=== PATIENT | female | born 1960 | race Native Hawaiian/Other Pacific Islander ===

== ENCOUNTER 2016-12-25 08:30 | Outpatient (CLI) | payer BC ==
[~2016-12-25 08:30] MED LIST: BC FAST PAI1 OR; IBUPROFEN PO; METAMUCIL0.52 GM PO; METRONIDAZOL500 MG PO; TRIM800T12 PO
[2016-12-25 08:55] LABS: PLATELET COUNT 288 K/uL (152-353)
[2016-12-25 09:35] LABS: POTASSIUM 4.2 mmol/L (3.6-5.2); SODIUM 139 mmol/L (136-145)
== END 2016-12-25 19:00 | disposition home or self-care (01) ==
LOC: LABW 08:30
PROVIDERS: Internal Medicine
DX: R10.31 Right lower quadrant pain (principal); D64.89 Other specified anemias; E78.4 Other hyperlipidemia
CPT/HCPCS: 36415; 80053; 80061; 81000; 84439; 84443; 85027

== ENCOUNTER 2017-01-01 07:58 | Outpatient (CLI) | payer BC | END 2017-01-01 19:11 | disposition home or self-care (01) | LOC: CT 07:58 | DX: R10.31 Right lower quadrant pain (principal) | CPT/HCPCS: Q9963 ==

== ENCOUNTER 2017-05-22 14:10 | Emergency (ER) | payer BC ==
[~2017-05-22] VITALS: Ht 167.6 cm; Wt 81.6 kg
== END 2017-05-22 15:42 | disposition home or self-care (01) ==
LOC: ED 14:10
PROC: 2W3DX1Z Immobilization of Left Lower Arm using Splint (ICD-10-PCS; principal; 2017-05-22)
DX: S52.502A Unspecified fracture of the lower end of left radius, initial encounter for closed fracture (principal); W19.XXXA Unspecified fall, initial encounter; Y92.098 Other place in other non-institutional residence as the place of occurrence of the external cause
CPT/HCPCS: 96372; 99283; J1885; J2175; J2405

== ENCOUNTER 2018-05-06 09:33 | Outpatient (CLI) | payer BC | END 2018-05-06 20:40 | disposition home or self-care (01) | LOC: RAD 09:33 | DX: J32.0 Chronic maxillary sinusitis (principal) ==

== ENCOUNTER 2018-09-03 10:33 | Outpatient (CLI) | payer BC | END 2018-09-03 20:18 | disposition home or self-care (01) | LOC: LABW 10:33 | DX: A09 Infectious gastroenteritis and colitis, unspecified (principal) | CPT/HCPCS: 83630; 87015; 87045; 87324; 87328; 87329; 87449; 87899 ==

== ENCOUNTER 2020-01-23 09:18 | Outpatient (CLI) | payer BC | END 2020-01-23 19:14 | disposition home or self-care (01) | LOC: RAD 09:18 | DX: Z13.820 Encounter for screening for osteoporosis (principal) ==

== ENCOUNTER 2023-02-16 08:47 | Outpatient (CLI) | payer BC | END 2023-02-16 20:08 | disposition home or self-care (01) | LOC: CT 08:47 | PROVIDERS: ATTEND Internal Medicine | DX: K57.92 Diverticulitis of intestine, part unspecified, without perforation or abscess without bleeding (principal) | CPT/HCPCS: 36415; 82565; 84520; Q9963 ==

== ENCOUNTER 2023-03-04 10:40 | Outpatient (CLI) | payer BC | END 2023-03-04 19:14 | disposition home or self-care (01) | LOC: CT 10:40 | PROVIDERS: ATTEND Internal Medicine | DX: R09.1 Pleurisy (principal) | CPT/HCPCS: Q9963 ==

== ENCOUNTER 2023-03-26 14:21 | Outpatient (CLI) | payer BC | END 2023-03-26 17:00 | disposition home or self-care (01) | LOC: RESP 14:21 | PROVIDERS: ATTEND Nurse Practitioner | DX: I49.3 Ventricular premature depolarization (principal) | CPT/HCPCS: 93225 ==